=== PATIENT | female | born 1995 | race Caucasian/White ===

== ENCOUNTER 2017-01-11 21:49 | Emergency (ER) | payer OTHER ==
[~2017-01-11 21:49] MED LIST: BACTRIM DS 8001 TAB PO; CLEOCIN HCL300 MG PO; CLINDAMYCIN HC300 MG PO; PANTOPRAZOLE SO40 MG PO; PRENATAL1 TA2 PO; TRIAMCINOLONE A15 G3 TOP; TYLENOL #31 TAB PO; ZOFRAN ODT4 MG SL
[2017-01-11 21:54] VITALS: BP 118/80
[2017-01-11] MEDS ORDERED: TYLENOL WITH C1 EACH PO (22:14)
[2017-01-11] MEDS ORDERED: DOXYCYCLINE HY100 M2 PO (22:14)
--- NOTE | 2017-01-11 22:15 | ED THROAT/DENTAL COMPLAINT ---
History of Present Illness General Chief Complaint: Sore Throat, Dental Pain Stated Complaint: DENTAL PAIN Source: patient Exam Limitations: no limitations Vital Signs & Intake/Output Vital Signs & Intake/Output Vital Signs Date Time Temp Pulse Resp B/P Pulse O2 O2 Flow FiO2 Ox Delivery Rate 01/11 2154 98.4 96 16 118/80 96 Room Air Allergies Coded Allergies: ibuprofen (Severe, PLATLET DISORDER 10/05/16) Penicillins (Intermediate, HIVES 10/05/16) aspirin (Intermediate, PLATLET DISORDER 10/05/16) cephalexin (From KEFLEX) (Intermediate, HIVES 10/05/16) amoxicillin (HIVES 10/05/16) fentanyl (PT UNSURE OF REACTION 10/05/16) hydromorphone (From DILAUDID) (10/05/16) Reconcile Medications Doxycycline Hyclate 100 MG CAPSULE 1 CAP PO BID dental infection Triamcinolone Acetonide 0.1 % OINT...G. 1 ÁNGEL TOP BID RASH apply to affected area(s) TO HANDS FOR 3-5 DAYS Tylenol With Codeine (Tylenol With Codeine #3 Tablet) 300 MG-30 MG TABLET 1 TAB PO BIDP PRN pain Triage Note: TRIAGE; PT TO ED, WAS DX WITH DENTAL INFECTION YESTERDAY BY DENTIST AND PLACED ON ZPACK YESTERDAY. STATES SHE NOW FEELS LIKE THERE IS WATER TO HER LT EAR AND LT SIDE OF FACE TINGLY. Triage Nurses Notes Reviewed? yes Onset: Gradual Duration: day(s): (2) Timing: remote history Injury Environment: home Severity: moderate Severity Numbers: 7 No Modifying Factors: none : No Patient currently breastfeeds: No HPI: Patient is a 21-year-old female presenting to the emergency department chief complaint of left lower dental pain that started 2 days ago. She saw his dentist yesterday and was diagnosed with dental infection and was told that her wisdom teeth are coming in. Denies any fevers. She reports that she feels some swelling on the left side of her face. Denies any trauma. Pain is worse with palpation. Denies taking anything for pain prior to arrival. (ELANA PERDOMO) Past History Travel History Traveled to [place] past 21 day No Medical History Any Pertinent Medical History? see below for history Neurological: ARNOLD CHIRIA #1 MALFORMATION EENT: NONE Cardiovascular: NONE Respiratory: asthma Gastrointestinal: chronic abdominal pain GASTROPERESIS Hepatic: NONE Renal: NONE Musculoskeletal: NONE Psychiatric: NONE Endocrine: IGA DEFF. 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 No (ELANA PERDOMO) Review of Systems Review of Systems Constitutional: Reports: no symptoms. Comments Review of systems: See HPI, All other systems negative. Constitutional, no chills fever or weight loss HEENT: No visual changes no sore throat no congestion Cardiovascular: No chest pain ,palpitation , orthopnea or ankle swelling Skin, no jaundice no rashes Respiratory: No dyspnea cough sputum or hemoptysis GI: No nausea no vomiting : No dysuria No hematuria Muscle skeletal: no back pain, no neck pain, Neurologic: No numbness no confusion Psych: No stress anxiety Immunology: Up-to-date with immunizations (ELANA PERDOMO) Physical Exam Physical Exam General Appearance: well developed/nourished, no apparent distress, alert, awake , comfortable Mouth/Throat: left lower wisdom tooth appears to be breaking through gumline. Comments: Well-developed well-nourished person in no acute distress HEENT: Pupils equally round and reactive to light and accommodation. Nose is atraumatic. External auditory canal and mild congestion behind the left TM otherwise Tympanic membranes clear. Pharynx normal. No swelling or edema. Tender to Palpation along the left lower jawline. Mild edema. No palpable abscess. Neck: Supple, no lymphadenopathy, normal range of motion without pain or tenderness Cardiovascular: normal JVP Respiratory: No respiratory distress. Extremity: No edema Neuro: Alert oriented x3 Skin: No appreciable rash on exposed skin, skin is warm and dry. Psych: Mood and affect is normal, memory and judgment is normal. Core Measures ACS in differential dx? No Severe Sepsis Present: No Septic Shock Present: No (ELANA PERDOMO) Progress Differential Diagnosis: carious tooth, kade-tonsillar abscess Plan of Care: No obvious signs of peritonsillar or dental abscess. Patient will be put on doxycycline, she'll follow up with her dentist tomorrow. Also given Tylenol with Codeine help with pain. Clearing secretions without difficulty. Patient nontoxic. (ELANA PERDOMO) Departure Departure Time of Disposition: 2212 Disposition: ER WALKOUT Condition: Stable Clinical Impression Primary Impression: Pain, dental Referrals: JONAS BOLAND (PCP/Family) Additional Instructions: Follow-up with your dentist call to make an appointment for next week. Take antibiotics as prescribed. Stop Z-Vijay. Increase fluids. Take Tylenol curliness was For pain. Return for worsening symptoms or concerns. Departure Forms: Customer Survey General Discharge Information Prescriptions: Current Visit Scripts Tylenol With Codeine (Tylenol With Codeine #3 Tablet) 1 TAB PO BIDP PRN pain #10 TAB Doxycycline Hyclate 1 CAP PO BID #14 CAP (ELANA PERDOMO) PA/RECREATION FACILITIES SUPERVISOR Co-Sign Statement Statement: ED Attending supervision documentation- [] I saw and evaluated the patient. I have also reviewed all the pertinent lab results and diagnostic results. I agree with the findings and the plan of care as documented in the PA's/RECREATION FACILITIES SUPERVISOR's documentation. x I have reviewed the ED Record and agree with the PA's/RECREATION FACILITIES SUPERVISOR's documentation. [] Additions or exceptions (if any) to the PAs/RECREATION FACILITIES SUPERVISOR's note and plan are summarized below: [] (YULISA DELAROSA,LEILANI)
== END 2017-01-11 22:19 ==
LOC: ERH 21:49
DX: K08.89 Other specified disorders of teeth and supporting structures (principal)

== ENCOUNTER 2017-10-31 20:10 | Emergency (ER) | payer OTHER ==
[~2017-10-31 20:10] MED LIST changes: +DOXYCYCLINE HY100 M2 PO; +TYLENOL WITH C1 EACH PO
--- NOTE | 2017-10-31 22:06 | ED THROAT/DENTAL COMPLAINT ---
History of Present Illness General Chief Complaint: General Adult Stated Complaint: "IT FEELS LIKE IM SWALLOWING GLASS" Source: patient, family, old records Exam Limitations: no limitations Vital Signs & Intake/Output Vital Signs & Intake/Output Vital Signs Date Time Temp Pulse Resp B/P B/P Pulse O2 O2 Flow FiO2 Mean Ox Delivery Rate 10/31 2217 99.3 82 18 116/82 99 Room Air 10/31 2018 97.8 90 20 119/81 98 Room Air Allergies Coded Allergies: ibuprofen (Severe, PLATLET DISORDER 10/05/16) Penicillins (Intermediate, HIVES 10/05/16) aspirin (Intermediate, PLATLET DISORDER 10/05/16) cephalexin (From KEFLEX) (Intermediate, HIVES 10/05/16) amoxicillin (HIVES 10/05/16) fentanyl (PT UNSURE OF REACTION 10/05/16) hydromorphone (From DILAUDID) (10/05/16) Reconcile Medications Azithromycin (Zithromax) 250 MG TABLET 1 DP PO AD pharyngitis 2 the first day followed by 1 for days 2-5 Triage Note: PER PT STARTED WITH MONTENEGRO AND CONGESTION 3 DAYS AGO NO OTC MEDS CO SORETHROAT AND COUGH THAT WHEN COUGHING FEELS LIKE SWALLOWING GLASS NO MENSES D/T EXPLENON PATCH Triage Nurses Notes Reviewed? yes Onset: Abrupt Duration: day(s): (3), constant Timing: remote history Injury Environment: home Severity: moderate Severity Numbers: 6 No Modifying Factors: none Associated Symptoms: cough, CONGESTION : No Patient currently breastfeeds: No HPI: 22-year-old female presents to ER for evaluation complaining of sore throat rhinorrhea congestion and nonproductive cough for the past 3 days. She reports her daughter's home sick with similar symptoms. No shortness of breath no chest pain or pelvic pain nausea vomiting diarrhea. She is not taken anything for symptoms. No modifying factors or associated symptoms otherwise. Past History Travel History Traveled to [place] past 21 day No Medical History Any Pertinent Medical History? see below for history Neurological: ARNKYLIE CHIRIA #1 MALFORMATION EENT: NONE Cardiovascular: NONE Respiratory: asthma Gastrointestinal: chronic abdominal pain GASTROPERESIS Hepatic: NONE Renal: NONE Musculoskeletal: NONE Psychiatric: NONE Endocrine: IGA DEFF. 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 No Review of Systems Review of Systems Constitutional: Reports: see HPI. Comments Review of systems: See HPI, All other systems negative. Constitutional, no chills no fever, HEENT: sore throat congestion Cardiovascular: No chest pain Skin: no rashes, no change in skin Respiratory: No dyspnea ough no sputum GI: No nausea no vomiting, : No dysuria Muscle skeletal: No joint pain, no back pain Neurologic: , no headache Psych: No stress Heme/endocrine: No bruising Immunology: No lymphadenopathy Physical Exam Physical Exam General Appearance: well developed/nourished, no apparent distress, alert, awake Mouth/Throat: normal mouth inspection Comments: Well-developed well-nourished patient in no apparent distress. Head/Face: Atraumatic, no maxillary/frontal sinus tenderness, no facial swelling Eyes: PERRL, EOMI, no conjunctival injection. No nystagmus Ear:External auditory canal and Tympanic membranes clear, no erythema, no FB. Nose: atraumatic.Normal inspection: No bleeding, no septal hematoma Throat: Moist mucous membranes.Pharynx normal. No pharyngeal erythema/exudate seen. No stridor/drooling or assymetry. No swelling or edema. Neck: Supple, no lymphadenopathy, FROM Back: FROM Cardiovascular: Regular rate and rhythms no murmurs Respiratory: No respiratory distress. Patient speaking in full complete sentences. Breath sounds clear to auscultation bilaterally: NO W/R/R Extremities: full range of motion Neuro: awake, alert, and oriented to person, place and time. There were no obvious focal neurologic abnormalities. Skin: Warm & dry;No appreciable rash on exposed skin Psych: Mood affect normal, normal memory normal judgment. Core Measures ACS in differential dx? No Sepsis Present: No Sepsis Focused Exam Completed? No Progress Differential Diagnosis: epiglottitis, Ludwigs angina, kade-tonsillar abscess, stomatitis/gingivitis, strep pharyngitis, MONO, BRONCHITIS, PNA Plan of Care: Orders Procedure Date/time Status THROAT CULTURE W/QUICK STREP 10/31 6770 Active I discussed with the patient at length all of their results. I had an extensive conversation regarding need for close follow up with their primary care physician this week as well as return precautions. I answered all of their questions, they feel comfortable with the plan and follow-up care. I discussed with the patient/family the medications that they will receive. I gave them signs and symptoms that could indicate an adverse reaction. I have advised them to limit their activities until they can see how they respond to the medication. Departure Departure Time of Disposition: 2233 Disposition: HOME OR SELF CARE Condition: Stable Clinical Impression Primary Impression: Pharyngitis Referrals: Sapna Prather APRN (PCP/Family) Additional Instructions: Z-Vijay as directed Tylenol for pain drink plenty of fluids. Follow-up with you primary care physician. Return with any concerns. Departure Forms: Customer Survey General Discharge Information Prescriptions: Current Visit Scripts Azithromycin (Zithromax) 1 DP PO AD #6 TAB 2 the first day followed by 1 for days 2-5
[2017-10-31 22:17] VITALS: BP 116/82
[2017-10-31] MEDS ORDERED: ZITHROMAX250 M2 PO (22:35)
== END 2017-10-31 22:38 ==
LOC: ERH 20:10
DX: J02.9 Acute pharyngitis, unspecified (principal)

== ENCOUNTER 2017-11-06 07:46 | Emergency (ER) | payer OTHER ==
[~2017-11-06] VITALS: Ht 160 cm; Wt 83.9 kg
[~2017-11-06 07:46] MED LIST changes: +ZITHROMAX250 M2 PO
--- NOTE | 2017-11-06 10:13 | RADIOLOGY REPORT ---
EXAMINATION: XR CHEST CLINICAL INFORMATION: Cough and fever COMPARISON: 09/05/2011 TECHNIQUE: 2 views of the chest were obtained. FINDINGS: The lungs are well expanded. There is no focal consolidation, edema, or effusion. No pneumothorax. The cardiomediastinal silhouette is within normal limits. No acute osseous abnormality. IMPRESSION: No acute pulmonary findings.
[2017-11-06 10:23] LABS: ABSOLUTE BASOPHIL COUNT 0.1 /CUMM (0.0-0.2); ABSOLUTE EOSINOPHIL COUNT 0.4 /CUMM (0.0-0.7); ABSOLUTE GRANULOCYTE CT 12.2 /CUMM (1.4-6.5); ABSOLUTE LYMPH COUNT 2.3 /CUMM (1.2-3.4); ABSOLUTE MONOCYTE COUNT 0.8 /CUMM (0.10-0.60); BASOPHIL % 0.3 % (0.0-2.0); EOSINOPHIL % 2.5 % (0-5); HEMATOCRIT 38.7 % (37-47); MEAN CORPUSCULAR HGB 30.9 PG (27.0-31.0); MEAN CORPUSCULAR HGB CONC 34.3 G/DL (33.0-37.0); MEAN CORPUSCULAR VOLUME 90.1 FL (81.0-99.0); RBC DISTRIBUTION WIDTH 12.4 % (11.5-14.5); WHITE BLOOD CELL COUNT 15.8 /CUMM (4.8-10.8)
[2017-11-06 10:47] LABS: GRANULOCYTE % 77.6 % (42.2-75.2); PLATELET COUNT 348 /CUMM (130-400)
[2017-11-06 10:53] VITALS: BP 128/64
[2017-11-06] MEDS ORDERED: AFRIN30 ML NASB ×2 (11:18→13:38)
[2017-11-06] MEDS ORDERED: PREDNISONE20 M1 PO ×2 (11:18→13:38)
[2017-11-06] MEDS ORDERED: ZOFRAN ODT4 M1 SL ×2 (11:18→13:38)
[2017-11-06] MEDS ORDERED: PROAIR HFA8.5 GM INH ×2 (11:18→13:38)
--- NOTE | 2017-11-06 11:18 | ED INFLUENZA/URI COMPLAINT ---
History of Present Illness General Chief Complaint: Upper Respiratory Sx/Fever Stated Complaint: URI HX OF ASTHMA Source: patient, family, old records Exam Limitations: no limitations Vital Signs & Intake/Output Vital Signs & Intake/Output Vital Signs Date Time Temp Pulse Resp B/P B/P Pulse O2 O2 Flow FiO2 Mean Ox Delivery Rate 11/06 1053 99.2 90 20 128/64 96 Room Air 11/06 1015 97.9 11/06 1000 97 Room Air Room Air 11/06 0750 97.9 86 20 117/67 97 Room Air Allergies Coded Allergies: ibuprofen (Severe, PLATLET DISORDER 10/05/16) Penicillins (Intermediate, HIVES 10/05/16) aspirin (Intermediate, PLATLET DISORDER 10/05/16) cephalexin (From KEFLEX) (Intermediate, HIVES 10/05/16) amoxicillin (HIVES 10/05/16) fentanyl (PT UNSURE OF REACTION 10/05/16) hydromorphone (From DILAUDID) (10/05/16) Reconcile Medications Albuterol Sulfate (Proair Hfa) 90 MCG HFA.AER.AD 2 PUF INH Q4-6 PRN PRN bronchospasm Ondansetron (Zofran Odt) 4 MG TAB.RAPDIS 1 TAB SL TID nausea Oxymetazoline HCl (Afrin) 0.05 % SPRAY 2 SPRAY NASB BID sinusitis Prednisone 20 MG TABLET 1 TAB PO BID sinusitis Triage Note: PT TO ED C/O WORSENING URI S/S. PT WAS SEEN IN ED ON 10/31 AND WAS GIVEN A Z-PACK. PT STATES SHE DOES NOT ANY BETTER. AFEBRILE. C/O COUGH. H/O ASTHMA "I DON'T KNOW IF IT'S PNEUMONIA NOW". Triage Nurses Notes Reviewed? yes Onset: Last week Duration: day(s):, constant, continues in ED, getting worse Timing: recent history Severity: moderate Prior Episodes/Possible Cause: illness exposure No Modifying Factors: none Associated Symptoms: cough, fever/chills, muscle aches, nasal congestion, nasal drainage, sore throat LMP (ages 10-50): unknown : No Patient currently breastfeeds: No HPI: 1 week prior to admission patient complains of sore throat nasal congestion chills. Mother and child were ill with similar symptoms previously. She was prescribed Zithromax with throat culture positive for Strep C. 12 hours prior to admission she developed anorexia nausea vomiting with continued congestion cough. She denies abdominal pain chest pain shortness of breath headache dysuria rash bleeding. Past History Travel History Traveled to [place] past 21 day No Medical History Any Pertinent Medical History? see below for history Neurological: PATTY CURIEL #1 MALFORMATION EENT: NONE Cardiovascular: NONE Respiratory: asthma Gastrointestinal: chronic abdominal pain GASTROPERESIS Hepatic: NONE Renal: NONE Musculoskeletal: NONE Psychiatric: NONE Endocrine: IGA DEFF. 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 No Review of Systems Review of Systems Constitutional: Reports: malaise. EENTM: Reports: see HPI, nasal pain, throat pain. Respiratory: Reports: see HPI, cough, sputum production. Cardiovascular: Reports: no symptoms. GI: Reports: see HPI, nausea, vomiting. Genitourinary: Reports: no symptoms. Musculoskeletal: Reports: no symptoms. Skin: Reports: no symptoms. Neurological/Psychological: Reports: no symptoms. Hematologic/Endocrine: Reports: no symptoms. Immunologic/Allergic: Reports: no symptoms. All Other Systems: Reviewed and Negative Physical Exam Physical Exam General Appearance: well developed/nourished, alert, awake, anxious, moderate distress, obese Head: atraumatic, normal appearance Eyes: Bilateral: normal appearance, PERRL, EOMI. Ears, Nose, Throat: normal ENT inspection, moist mucous membrane, hearing grossly normal Neck: normal inspection, supple, full range of motion, trachea midline, no midline tenderness Respiratory: normal breath sounds, chest non-tender, no respiratory distress, quiet respiration, lungs clear Cardiovascular: regular rate/rhythm, normal peripheral pulses, norml femoral pulses equa Peripheral Pulses: 4+ carotid (R), 4+ carotid (L) Gastrointestinal: normal bowel sounds, soft, non-tender, no organomegaly Back: normal inspection, normal range of motion, no vertebral tenderness Extremities: normal inspection, normal capillary refill, normal range of motion, no edema Neurologic/Psych: no motor/sensory deficits, awake, alert, oriented x 3, normal gait, normal mood/affect, supervisor clam bed II-XII nml as tested Reflexes: 2+: bicep (R), bicep (L). Skin: intact, normal color, warm/dry Lymphatic: no anterior cervical rico Core Measures Sepsis Present: No Sepsis Focused Exam Completed? No Progress Differential Diagnosis: influenza, pharyngitis, sinusitis Plan of Care: Orders Procedure Date/time Status RAPID VIRAL INFLUENZA A 11/06 943 Complete LIPASE 11/06 943 Complete HUMAN BETA HCG SCREEN 11/06 943 Complete COMPREHENSIVE METABOLIC PANEL 11/06 943 Complete CBC WITHOUT DIFFERENTIAL 11/06 943 Complete Laboratory Tests 11/06/17 1000: Anion Gap 11, Estimated GFR > 60, BUN/Creatinine Ratio 15.0, Glucose 101 H, Calcium 10.1, Total Bilirubin 0.4, AST 20, ALT 27, Alkaline Phosphatase 104, Total Protein 7.8, Albumin 4.5, Globulin 3.3, Albumin/Globulin Ratio 1.4, Lipase 127, Total Beta HCG NEGATIVE, CBC w Diff NO MAN DIFF REQ, RBC 4.30, MCV 90.1, MCH 30.9, RDW 12.4, MPV 8.0, Gran % 77.6 H, Lymphocytes % 14.6 L, Monocytes % 5.0, Eosinophils % 2.5, Basophils % 0.3, Absolute Granulocytes 12.2 H, Absolute Lymphocytes 2.3, Absolute Monocytes 0.8 H, Absolute Eosinophils 0.4, Absolute Basophils 0.1, PUBS MCHC 34.3 Microbiology 11/06 1000 NASOPHARYN: Influenza Virus A & B Rapid Smear - COMP Diagnostic Imaging: Viewed by Me: Radiology Read. Discussed w/RAD: Radiology Read. CXR Impression: no acute abnormality, no infiltrates, normal size heart, normal mediastinum Initial ED EKG: none Departure Departure Time of Disposition: 111 Disposition: HOME OR SELF CARE Condition: Stable Clinical Impression Primary Impression: Sinusitis Secondary Impressions: Bronchitis, Nausea & vomiting Referrals: Sapna Prather APRN (PCP/Family) Additional Instructions: Clear liquids for 12-24 hours until better Departure Forms: Customer Survey General Discharge Information RELEASE- WORK Prescriptions: Current Visit Scripts Prednisone 1 TAB PO BID #10 TAB Oxymetazoline HCl (Afrin) 2 SPRAY NASB BID #30 ML Albuterol Sulfate (Proair Hfa) 2 PUF INH Q4-6 PRN PRN bronchospasm #1 INHAL Ondansetron (Zofran Odt) 1 TAB SL TID #10 TAB
== END 2017-11-06 11:33 ==
LOC: ERH 07:46
PROVIDERS: Emergency Medicine
DX: J32.9 Chronic sinusitis, unspecified (principal); J40 Bronchitis, not specified as acute or chronic; R11.2 Nausea with vomiting, unspecified; Z87.891 Personal history of nicotine dependence
CPT/HCPCS: 1263; 71046; 87804; 87804-59; 96374; 96375; J0131; J2405; J2930

== ENCOUNTER 2018-04-18 20:13 | Emergency (ER) | payer OTHER ==
[~2018-04-18] VITALS: Ht 160 cm; Wt 79.4 kg
[~2018-04-18 20:13] MED LIST changes: +AFRIN30 ML NASB; +PREDNISONE20 M1 PO; +PROAIR HFA8.5 GM INH; +ZOFRAN ODT4 M1 SL
[2018-04-18 20:16] VITALS: BP 102/65
--- NOTE | 2018-04-18 22:11 | ED GI/GU/ABDOMINAL COMPLAINT ---
History of Present Illness General Chief Complaint: General Adult Stated Complaint: "THINK I HAVE A KIDNEY INFECTION" PER PT Source: MOTHER Exam Limitations: no limitations Vital Signs & Intake/Output Vital Signs & Intake/Output Vital Signs Date Time Temp Pulse Resp B/P B/P Pulse O2 O2 Flow FiO2 Mean Ox Delivery Rate 04/18 2138 Room Air 04/18 2016 96.9 75 18 102/65 99 Room Air Allergies Coded Allergies: ibuprofen (Severe, PLATLET DISORDER 10/05/16) Penicillins (Intermediate, HIVES 10/05/16) aspirin (Intermediate, PLATLET DISORDER 10/05/16) cephalexin (From KEFLEX) (Intermediate, HIVES 10/05/16) amoxicillin (HIVES 10/05/16) fentanyl (PT UNSURE OF REACTION 10/05/16) hydromorphone (From DILAUDID) (10/05/16) Reconcile Medications Albuterol Sulfate (Proair Hfa) 90 MCG HFA.AER.AD 2 PUF INH Q4-6 PRN PRN bronchitis Ondansetron (Zofran Odt) 4 MG TAB.RAPDIS 1 TAB SL TID nausea Oxymetazoline HCl (Afrin) 0.05 % SPRAY 2 SPRAY NASB BID sinusitis Prednisone 20 MG TABLET 1 TAB PO BID sinusitis Triage Note: PT TO TRIAGE C/O R FLANK PAIN RADIATING TO ABD SINCE SUNDAY. +URINARY FREQUENCY, DYSURIA, NAUSEA. PT STATES TOOK TEST AT HOME, NEGATIVE PER PT. LMP 2 YEARS AGO D/T CONTROL. Triage Nurses Notes Reviewed? yes ? n Is pt currently ? No HPI: Patient presents for evaluation of possible left kidney stone or infection. History is extremely limited given that the patient's mother would not allow blood patient to provide history and was angry of the fact that ultrasound could not be performed. Patient states her physician sent her daughter to the emergency department for an ultrasound because her history of IgG deficiency possibility of a kidney infection. Past History Travel History Traveled to [place] past 21 day No Medical History Any Pertinent Medical History? see below for history Neurological: PATTY CURIEL #1 MALFORMATION EENT: NONE Cardiovascular: NONE Respiratory: asthma Gastrointestinal: chronic abdominal pain GASTROPERESIS Hepatic: NONE Renal: NONE Musculoskeletal: NONE Psychiatric: NONE Endocrine: IGA DEFF. 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 No Review of Systems Review of Systems Constitutional: Reports: no symptoms. EENTM: Reports: no symptoms. Respiratory: Reports: no symptoms. Cardiovascular: Reports: no symptoms. GI: Reports: no symptoms. Genitourinary: Reports: see HPI. Musculoskeletal: Reports: no symptoms. Skin: Reports: no symptoms. Neurological/Psychological: Reports: no symptoms. Hematologic/Endocrine: Reports: no symptoms. Immunologic/Allergic: Reports: no symptoms. All Other Systems: Reviewed and Negative Physical Exam Physical Exam Gastrointestinal: see below Comments: Gen.: Well-nourished, well-developed, no acute respiratory distress. Head: Normocephalic, atraumatic. Eyes: Normal inspection bilaterally Ears: Normal inspection bilaterally Nose: Normal inspection Throat/mouth : Moist mucosa Neck: Supple, full range of motion, no goiter Lungs: Quiet respirations Back: Normal range of motion Extremities: Normal range of motion grossly, no cyanosis clubbing or edema of the upper extremities Neurologic: Cranial nerves grossly intact, unable to assess speech Skin: warm and dry Psychiatric: Calm, otherwise unable to assess Core Measures ACS in differential dx? No Sepsis Present: No Sepsis Focused Exam Completed? No Progress Differential Diagnosis: appendicitis, biliary colic, kidney stone, UTI/pyelo Plan of Care: Orders Procedure Date/time Status URINE 04/18 2019 Complete URINALYSIS 04/18 2019 Complete Laboratory Tests 04/18/182021: Urine Color YEL, Urine Clarity CLEAR, Urine pH 6.5, Ur Specific [place] 1.025, Urine Protein NEG, Urine Ketones NEG, Urine Nitrite NEG, Urine Bilirubin NEG, Urine Urobilinogen 1.0, Ur Leukocyte Esterase NEG, Ur Microscopic EXAM NOT REQUIRED, Urine Hemoglobin NEG, Urine Glucose NEG, Urine Test NEGATIVE Initial ED EKG: none Comments: Upon my arrival to the room patient's mother was discussing the need for an ultrasound to rule out a kidney infection given the patient's history of IgG deficiency. She states she was sent in by her doctor for the ultrasound. She stated that the patient can simply be placed on an antibiotic without evaluating the kidney. She states that the patient's immune disorder can impact on the organ systems. I contacted the radiology department to confirm that ultrasonography was no longer available. Patient's mother at that point demanded that the patient leave the emergency department. I offered a CAT scan with IV contrast to evaluate the kidneys but the patient's mother stated that she was initially told that "imaging" was unavailable. She was then told to speak with "the next person"who apparently stated a similar appreciation of the availability of imaging studies. I told the patient's mother that we do not have ultrasonography available but that CAT scan is available 24 hours a day 7 days a week. The patient's mother asked if these weren't part of the same "department". Unfortunately, patient's mother continue to escalate in her frustration and anger. Patient's mother told the patient to leave the emergency department. She felt that I did not know anything about her daughter's chronic medical condition even though I was unable to speak to her at any length. I offered an emergency department evaluation patient's mother felt that if she cannot have the ultrasound that she would simply follow up with her physician in the morning. I have provided a work note for the patient at her mother's request. According to one of our nurses, patient's mother refused to take the discharge instructions stating that "the doctor" did not speak to her. Departure Departure Disposition: LEFT AGAINST MEDICAL ADVICE Condition: Stable Clinical Impression Primary Impression: Flank pain Referrals: Akshat DELAROSA,Poly Christianson (PCP/Family) Additional Instructions: Follow-up with your primary care physician as soon as possible. Return if any concerns or sudden worsening. Departure Forms: Customer Survey General Discharge Information
== END 2018-04-18 22:28 | disposition left against medical advice (07) ==
LOC: ERH 20:13
DX: R10.31 Right lower quadrant pain (principal)
CPT/HCPCS: 81003; 81025

== ENCOUNTER 2018-05-26 18:04 | Emergency (ER) | payer OTHER ==
[~2018-05-26] VITALS: Ht 160 cm; Wt 72.6 kg
--- NOTE | 2018-05-26 18:46 | ED GI/GU/ABDOMINAL COMPLAINT ---
History of Present Illness General Chief Complaint: General Adult Stated Complaint: ?FOOD POISONING,DIZZINESS,CHILLS,VOMITING PER PT Source: patient, family Exam Limitations: no limitations Vital Signs & Intake/Output Vital Signs & Intake/Output Vital Signs Date Time Temp Pulse Resp B/P B/P Pulse O2 O2 Flow FiO2 Mean Ox Delivery Rate 05/26 2022 97.9 78 16 112/74 99 Room Air 05/26 1903 Room Air 05/26 1814 98.9 120 18 120/81 95 Room Air ED Intake and Output 05/27 0000 05/26 1200 Intake Total 1000 Output Total 400 Balance 600 Intake, IV 1000 Output, Urine 400 Patient 160 lb Weight Weight Reported by Patient Measurement Method Allergies Coded Allergies: ibuprofen (Severe, PLATLET DISORDER 10/05/16) vancomycin (Severe, ANAPHYLAXIS 05/26/18) Penicillins (Intermediate, HIVES 10/05/16) aspirin (Intermediate, PLATLET DISORDER 10/05/16) cephalexin (From KEFLEX) (Intermediate, HIVES 10/05/16) hydromorphone (From DILAUDID) (Intermediate, HIVES 05/26/18) amoxicillin (HIVES 10/05/16) fentanyl (HIVES, SOB, DYSPNEA 05/26/18) Reconcile Medications Albuterol Sulfate (Proair Hfa) 90 MCG HFA.AER.AD 2 PUF INH AD PRN RESP. ( Reported) Cannabis (Marijuana Oil) 1 amp AMP 1 A INH AD PRN GASTROPARESIS/COLITIS ( Reported) Triage Note: PT TO ER C/C N/V/D X 1 DAY S/P EATING "BAD CHICKEN" TODAY + CHILLS. DENIES URINARY S/S. Triage Nurses Notes Reviewed? yes ? n Is pt currently ? No Onset: Gradual Duration: hour(s): Timing: multiple episodes today Quality/Severity: moderate Location: lower abdomen Radiation: no radiation HPI: 23-year-old female with history of arnold chiari malformation, ITP, Crohn's disease presents to ED complaining of "food poisoning". Patient states that around 11 AM she ate a chicken sandwich at a diner. Patient states that the chicken sandwich tasted like it might have been spoiled. Patient says one hour later she had 3 episodes of nonbilious nonbloody vomiting and 3 episodes of diarrhea. Patient reports lower abdominal cramping sensation. Patient states that the symptoms do not feel similar to symptoms relating to her Crohn's disease. She reports an associated headache since began having vomiting. She had no head trauma prior to onset of headache. Headache described as bilateral frontal. Patient denies fevers, chills, sick contact, visual changes, urinary symptoms. (Ginger Keller) Past History Travel History Traveled to [place] past 21 day No Medical History Any Pertinent Medical History? see below for history Neurological: ARNKYLIE CHIRIA #1 MALFORMATION EENT: NONE Cardiovascular: NONE Respiratory: asthma Gastrointestinal: colitis, chronic abdominal pain GASTROPERESIS Hepatic: NONE Renal: NONE Musculoskeletal: NONE Psychiatric: NONE Endocrine: IGA DEFF. 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 No (Ginger Keller) Review of Systems Review of Systems Constitutional: Reports: no symptoms. EENTM: Reports: no symptoms. Respiratory: Reports: no symptoms. Cardiovascular: Reports: no symptoms. GI: Reports: see HPI. Genitourinary: Reports: no symptoms. Musculoskeletal: Reports: no symptoms. Skin: Reports: no symptoms. Neurological/Psychological: Reports: see HPI. Hematologic/Endocrine: Reports: no symptoms. Immunologic/Allergic: Reports: no symptoms. All Other Systems: Reviewed and Negative (Ginger Keller) Physical Exam Physical Exam General Appearance: well developed/nourished, no apparent distress, alert, awake Head: atraumatic, normal appearance Eyes: Bilateral: normal appearance, PERRL, EOMI. 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 No Sepsis Present: No Sepsis Focused Exam Completed? No (Ginger Keller) Progress Differential Diagnosis: appendicitis, bowel obstruction, diverticulitis, gastritis, inflamm bowel dis, peptic ulcer, PUD/GERD, UTI/pyelo, food poisoning, gastroenteritis Plan of Care: Orders Procedure Date/time Status URINALYSIS 05/26 1846 Complete LIPASE 05/26 1810 Complete HUMAN BETA HCG SCREEN 05/26 1810 Complete COMPREHENSIVE METABOLIC PANEL 05/26 1810 Complete CBC WITHOUT DIFFERENTIAL 05/26 1810 Complete Laboratory Tests 05/26/182014: Urine Color YEL, Urine Clarity CLEAR, Urine pH 7.0, Ur Specific [place] 1.025, Urine Protein NEG, Urine Ketones NEG, Urine Nitrite NEG, Urine Bilirubin NEG, Urine Urobilinogen 0.2, Ur Leukocyte Esterase NEG, Ur Microscopic EXAM NOT REQUIRED, Urine Hemoglobin NEG, Urine Glucose NEG 05/26/181837: Anion Gap 12, Estimated GFR > 60, BUN/Creatinine Ratio 15.7, Glucose 93, Calcium 9.8, Total Bilirubin 0.4, AST 21, ALT 28, Alkaline Phosphatase 76, Total Protein 7.4, Albumin 4.6, Globulin 2.8, Albumin/Globulin Ratio 1.6, Lipase 141, Total Beta HCG NEGATIVE, CBC w Diff NO MAN DIFF REQ, RBC 4.26, MCV 92.4, MCH 31.8 H, MCHC 34.4, RDW 12.6, MPV 8.4, Gran % 77.4 H, Lymphocytes % 14.7 L, Monocytes % 5.4, Eosinophils % 2.3, Basophils % 0.2, Absolute Granulocytes 12.1 H, Absolute Lymphocytes 2.3, Absolute Monocytes 0.8 H, Absolute Eosinophils 0.4, Absolute Basophils 0 Patient has leukocytosis of 15.7, per patient WBCs "always high". She may also have a leukocytosis from acute vomiting. Labs are otherwise nonactionable. Patient feels improved following IV Zofran and fluids. She is now tolerating PO. She was medicated with Tylenol for headache. Many analgesics were limited Due to her multiple allergies. Patient feels ready to go home at this time. She has no abdominal tenderness, afebrile, nontoxic appearing. Patient seen laughing with her boyfriend while waiting for test results. The patient agrees with plan of care. Dr. Genao agrees with this plan. Initial ED EKG: none (Patricia CALLE,Ginger Lopez) Departure Departure Disposition: HOME OR SELF CARE Condition: Stable Clinical Impression Primary Impression: Nausea vomiting and diarrhea Secondary Impressions: Abdominal pain Qualifiers: Abdominal location: lower abdomen, unspecified Qualified Code: R10.30 - Lower abdominal pain, unspecified Headache Qualifiers: Headache type: unspecified Headache chronicity pattern: acute headache Intractability: not intractable Qualified Code: R51 - Headache Referrals: Akshat DELAROSA,Poly Christianson (PCP/Family) Additional Instructions: Follow-up with your primary care doctor. Drink clear liquids as tolerated. Continue Zofran as prescribed as needed for nausea. Return if any worsening symptoms or concerns. Please note that there might be incidental findings in your evaluation that are unrelated to the current emergency department visit. Please notify your primary care doctor about this emergency department visit in order to obtain and review all of the testing performed so that these incidental findings can be monitored as needed. If you had an x-ray performed, please understand that some fractures may not be seen on the initial set of x-rays. If your symptoms persist you might need a repeat set of x-rays to check for such a fracture. If you had a laceration evaluated, please understand that foreign bodies such as glass or wood may not be visible to the naked eye or on plain x-rays. If the wound becomes red, swollen, increasingly more painful or if there is any drainage from the wound, please have it reevaluated by a physician for the possibility of a retained foreign body. If you're unable to follow up as outlined in the discharge instructions please return to the emergency department. Thank you for choosing the [facility] Emergency Department for your care. It was a pleasure to serve you today. Departure Forms: Customer Survey General Discharge Information (Patricia CALLE,Ginger Lopez) PA/BURIAL NEEDS SALESPERSON Co-Sign Statement Statement: ED Attending supervision documentation- [x] I have reviewed the ED Record and agree with the PA's/BURIAL NEEDS SALESPERSON's documentation. (Justin DELAROSA,Peter Kennedy)
[2018-05-26 18:55] LABS: ABSOLUTE BASOPHIL COUNT 0 /CUMM (0.0-0.2); ABSOLUTE EOSINOPHIL COUNT 0.4 /CUMM (0.0-0.7); ABSOLUTE GRANULOCYTE CT 12.1 /CUMM (1.4-6.5); ABSOLUTE LYMPH COUNT 2.3 /CUMM (1.2-3.4); ABSOLUTE MONOCYTE COUNT 0.8 /CUMM (0.10-0.60); BASOPHIL % 0.2 % (0.0-2.0); EOSINOPHIL % 2.3 % (0-5); GRANULOCYTE % 77.4 % (42.2-75.2); HEMATOCRIT 39.3 % (37-47); MEAN CORPUSCULAR HGB 31.8 PG (27.0-31.0); MEAN CORPUSCULAR HGB CONC 34.4 G/DL (33.0-37.0); MEAN CORPUSCULAR VOLUME 92.4 FL (81.0-99.0); MEAN PLATELET VOLUME 8.4 FL (7.4-10.4); PLATELET COUNT 271 /CUMM (130-400); RBC DISTRIBUTION WIDTH 12.6 % (11.5-14.5); RED BLOOD CELL CT 4.26 /CUMM (4.20-5.40); WHITE BLOOD CELL COUNT 15.7 /CUMM (4.8-10.8)
[2018-05-26] MEDS ORDERED: MARI INH (18:57)
[2018-05-26] MEDS ORDERED: PROAIR HFA8.5 GM INH (18:58)
[2018-05-26 20:22] VITALS: BP 112/74
== END 2018-05-26 21:19 ==
LOC: ERH 18:04
PROVIDERS: Internal Medicine
DX: R11.2 Nausea with vomiting, unspecified (principal); R19.7 Diarrhea, unspecified; R51 Headache; R10.30 Lower abdominal pain, unspecified
CPT/HCPCS: 81003; 96374; 96375; J0131; J2405